=== PATIENT | male | born 1965 | race Caucasian/White ===

== ENCOUNTER 2016-05-07 09:54 | Outpatient (RCR) | payer OTHER ==
[~2016-05-07 09:54] MED LIST: MOBIC15 MG PO; NEXIUM 20MG20 MG PO; PROTONIX 40MG T40 MG PO; ZOCOR 40MG40 MG PO
== END 2016-07-14 ==
LOC: WSOH
DX: M25.511 Pain in right shoulder (principal)

== ENCOUNTER → 2022-01-16 | Outpatient (CLI) | payer BC | LOC: COL.RAD 07:09 | DX: R10.84 Generalized abdominal pain (principal) ==